=== PATIENT | male | born 1990 | race Caucasian/White ===

== ENCOUNTER 2017-01-23 10:14 | Emergency (ER) | payer OTHER ==
[~2017-01-23] VITALS: Ht 172.7 cm; Wt 85.0 kg
[2017-01-23 10:24] VITALS: BP 117/93
--- NOTE | 2017-01-23 10:33 | NUR ---
Patient ambulated to bed 06.
--- NOTE | 2017-01-23 10:35 | NUR ---
PATIENT PRESENTS TO ED WITH 15 CM LAC TO WRIST WITH BLADE WHILE WORKING ON A PROJECT LAST TETANUS MONTH AGO HX----DENIES RX----NONE DENIES N/V/D; SKIN IS PINK/WARM/DRY; AAOX4 WITH EVEN AND STEADY GAIT; LUNGS CLEAR BL; HR EVEN AND REGULAR; PT DENIES ANY FEVER, CP, SOB, OR COUGH AT THIS TIME; PATIENT STATES PAIN OF 0/10 AT THIS TIME; VSS; PATIENT POSITIONED FOR COMFORT; HOB ELEVATED; BEDRAILS UP X2; BED DOWN. ER MD MADE AWARE OF PT STATUS.
--- NOTE | 2017-01-23 10:41 | NUR ---
Dr. Lewis evaluating patient at bedside.
[2017-01-23] MEDS ORDERED: LIDOCAINE 1% ED 50 ML ONE (10:42)
[2017-01-23] MEDS ORDERED: LIDOCAINE 1% 500 MG/50 ML VIAL INJ ONE (10:45)
[2017-01-23 10:58] VITALS: BP 121/93
== END 2017-01-23 10:58 | disposition home or self-care (01) ==
LOC: MED 10:14
DX: S51.811A Laceration without foreign body of right forearm, initial encounter (principal); W26.0XXA Contact with knife, initial encounter; Y93.89 Activity, other specified; Y92.69 Other specified industrial and construction area as the place of occurrence of the external cause; Y99.0 Civilian activity done for income or pay
CPT/HCPCS: 12001; 99283; J2001